=== PATIENT | male | born 1980 | race Caucasian/White ===

== ENCOUNTER 2021-01-02 16:45 | Emergency (ER) | payer BC ==
[~2021-01-02] VITALS: Ht 162.6 cm; Wt 104.3 kg
[2021-01-02 16:52] VITALS: BP 133/94
--- NOTE | 2021-01-02 17:10 | NUR ---
PATIENT AMBULATED TO [facility].
--- NOTE | 2021-01-02 17:11 | NUR ---
40/M BIB FRIEND C/O ANXIETY, DIFICULTY BREATHING X 30 MINS AGO. DENIES PAIN AT THIS TIME. O2 SAT 100%, R 22 AT THIS TIME. COVID TESTED+ 11/04/20 & NEGATIVE 11/27/20. MED HX: ANXIETY
[2021-01-02 17:55] VITALS: BP 132/89
--- NOTE | 2021-01-02 17:55 | NUR ---
Patient discharged with v/s stable. Written and verbal after care instructions given and explained. Patient alert, oriented and verbalized understanding of instructions. Ambulatory with steady gait. All questions addressed prior to discharge. ID band removed. Patient advised to follow up with PMD. Rx of Ambien 5mg given. Patient educated on indication of medication including possible reaction and side effects. Opportunity to ask questions provided and answered.
== END 2021-01-02 17:55 | disposition home or self-care (01) ==
LOC: MED 16:45
DX: R06.02 Shortness of breath (principal); R42 Dizziness and giddiness
CPT/HCPCS: 93005; 99283